=== PATIENT | female | born 1995 | race Two or more races ===

== ENCOUNTER 2018-12-25 18:41 | Emergency (ER) | payer OTHER ==
[~2018-12-25] VITALS: Ht 157.5 cm; Wt 56.7 kg
[2018-12-25] MEDS ORDERED: GILENYA0.5 MG (19:16)
[2018-12-25] MEDS ORDERED: BUDESONIDE0.5 MG/2 M IH (22:00)
[2018-12-25] MEDS ORDERED: PROMETH-CODEIN 65 ML PO (22:00)
[2018-12-25] MEDS ORDERED: MUCINEX DM ER1 EAC1 PO (22:00)
[2018-12-25] MEDS ORDERED: ZITHROMAX500 MG PO (22:00)
== END 2018-12-25 21:59 | disposition home or self-care (01) ==
LOC: ER 18:41
DX: J06.9 Acute upper respiratory infection, unspecified (principal)

== ENCOUNTER 2022-03-12 23:09 | Emergency (ER) | payer OTHER ==
[~2022-03-12] VITALS: Ht 157.5 cm; Wt 61.2 kg
[~2022-03-12 23:09] MED LIST: BUDESONIDE0.5 MG/2 M IH; GILENYA0.5 MG; MUCINEX DM ER1 EAC1 PO; PROMETH-CODEIN 65 ML PO; ZITHROMAX500 MG PO
[2022-03-13] MEDS ORDERED: LEVSIN0.125 MG PO (04:52)
[2022-03-13] MEDS ORDERED: INTESTINEX680 M1 PO (04:52)
[2022-03-13] MEDS ORDERED: PEPCID AC20 MG PO (04:52)
== END 2022-03-13 06:02 | disposition home or self-care (01) ==
LOC: ER 23:09
DX: K52.9 Noninfective gastroenteritis and colitis, unspecified (principal); A49.3 Mycoplasma infection, unspecified site; Z20.822 Contact with and (suspected) exposure to COVID-19